=== PATIENT | female | born 1980 | race Caucasian/White ===

== ENCOUNTER 2022-03-15 09:33 | Outpatient (CLI) | payer OTHER | END 2022-03-15 09:35 | disposition home or self-care (01) | LOC: SONOGRAMA 09:33 | PROVIDERS: ATTEND Obstetrics & Gynecology Gynecology | DX: N84.0 Polyp of corpus uteri (principal) ==

== ENCOUNTER 2022-04-02 10:00 | Outpatient (CLI) | payer OTHER | END 2022-04-02 10:07 | disposition home or self-care (01) | LOC: SONOGRAMA 10:00 | DX: R22.1 Localized swelling, mass and lump, neck (principal) ==